=== PATIENT | female | born 1975 | race Caucasian/White ===

== ENCOUNTER 2022-06-23 08:58 | Emergency (ER) | payer OTHER, SELFPAY ==
--- NOTE | ~2022-06-23 | XR_ITS ---
EXAMINATION: XR ANKLE, LEFT. XR FOOT, LEFT. CLINICAL INFORMATION: Left foot and ankle pain COMPARISON: None. TECHNIQUE: 3 views of the left ankle. 3 views of the left foot. FINDINGS: The ankle mortise is preserved. No acute fracture or malalignment. No significant degenerative findings. XR/XR foot LT min 3V IMPRESSION: Normal left ankle and foot.
--- NOTE | ~2022-06-23 | XR_ITS ---
EXAMINATION: XR ANKLE, LEFT. XR FOOT, LEFT. CLINICAL INFORMATION: Left foot and ankle pain COMPARISON: None. TECHNIQUE: 3 views of the left ankle. 3 views of the left foot. FINDINGS: The ankle mortise is preserved. No acute fracture or malalignment. No significant degenerative findings. XR/XR ankle LT min 3V IMPRESSION: Normal left ankle and foot.
[2022-06-23 09:53] VITALS: BP 135/88; PULSE 88; RESP 18; TEMP 37; O2SAT 99; BMI 32.4
[2022-06-23 10:00] VITALS: BP 142/88; PULSE 82; RESP 16; TEMP 36.9; O2SAT 100
--- NOTE | 2022-06-23 10:48 | ED_ITS ---
HPI - General Adult General Chief complaint: Back Pain/Injury Stated complaint: R side back pain Time Seen by Provider: 06/23/22 09:56 Source: patient and RN notes reviewed Mode of arrival: ambulatory Limitations: no limitations History of Present Illness HPI narrative: This is a 46-year-old female who presents to the emergency department today with complaints of low back pain since last weekend. Patient reports that she has had no recent trauma, injury, or heavy lifting. Her job requires her to be on her feet for most of the day. She was seen by her primary care doctor 1 week ago and was given a course of steroids, muscle relaxers, and the pain cream which has provided her with relief. She reports the low back pain is left-sided and radiates into her left buttocks. She also reports that she has had pain on the top of her left foot and noticed some swelling several days ago. She admits that her left foot pain is worse than her back pain today. She denies any recent trauma or injury to her left foot in believes that her symptoms are related. Denies any urinary or bowel incontinence. Denies any urinary or bowel retention. Denies dysuria, hematuria, urinary frequency urgency. Denies any fevers, chills, abdominal pain, nausea, vomiting, or diarrhea. Denies any other complaints or concerns at this time. MD complaint: Back pain, left foot pain Onset (ago): week(s) Location: back, buttocks and lower extremity Severity: moderate Pain Consistency: constant Relieving factors: none Exacerbating factors: none Associated symptoms: denies other symptoms Treatments prior to arrival: none Related Data Previous Rx's Medication Instructions Recorded ibuprofen 600 mg tablet 600 mg PO Q6H PRN pain #45 tabs 06/23/22 Allergies Allergy/AdvReac Type Severity Reaction Status Date / Time Penicillins [PENICILLINS] Allergy Unknown RASH Verified 06/23/22 09:52 Review of Systems Review of Systems: Constitutional: No Weight loss, No Fever, No Chills ENT/Mouth: No Ear Pain, No Nasal Congestion, No Sinus Pain, No Hoarseness, No sore throat, No Rhinorrhea, No Swallowing Difficulty Cardiovascular: No Chest Pain, No SOB Respiratory: No Cough, No Sputum, No Wheezing Gastrointestinal: No Nausea, No Vomiting, No Diarrhea, No Constipation, No Abdominal pain Genitourinary: No Dysuria, No Urinary Frequency, No Hematuria, No Urinary Incontinence/retention, No Urgency, No Flank Pain Musculoskeletal: +foot pain, +back pain, No joint pain, No Myalgias, No Joint Swelling Skin: No Skin Lesions, No rash Neuro: No Weakness, No Numbness, No Paresthesias Yes all other systems are reviewed and are negative Constitutional: Constitutional: Reports as per [facility] Past Medical History Attestation statement: The following information was validated with the patient. Social History Social History Advance Directives: No Advance Directives Information Provided: No Physical Exam ED Vital Signs: Vital Signs - 24 hr 06/23/22 09:53 06/23/22 10:00 Temperature 98.6 F 98.4 F Pulse Rate 88 82 Respiratory Rate 18 16 Blood Pressure 135/88 142/88 H Pulse Oximetry 99 100 Oxygen Delivery Method Room Air Room Air BMI result Body Mass Index 32.4 Const General: cooperative, comfortable and no acute distress Orientation/consciousness: patient oriented x3 Limitations: no limitations HENMT Head: Yes normal to inspection, Yes normocephalic and Yes atraumatic Ears: hearing grossly normal bilaterally General nose exam: Normal external nose present Face and sinus: Yes normal facial exam Mouth: Normal oral and palatal mucosa present, oropharynx normal and moist mucous membranes Throat: Yes posterior oropharynx normal Eyes General: appearance normal, both eyes and all related structures Eyelids: Yes eyelids normal Conjunctivae: conjunctivae normal Sclerae: sclerae normal Pupils: Equal, round and reactive pupils present EOM: EOMs intact bilaterally Neck Neck: Yes normal visual inspection, Yes full ROM and Yes no lymphadenopathy Lymphatic: no lymphadenopathy noted Chest Chest palpation & inspection: normal inspection of the chest Resp Effort & Inspection: normal respiratory effort and able to speak in complete sentences Auscultation: clear to auscultation bilaterally, no crackles, no rales, no rhonchi and no wheezes Cardio Rate: regular rate Rhythm: regular rhythm Heart sounds: S1 normal heart sound present and S2 normal heart sound present GI Inspection: Yes normal to inspection Back/Spine/Pelvis Other: No midline spine tenderness. No lumbar paraspinous muscle tenderness. There is tenderness to palpation over the left sciatic notch, no overlying skin changes in this region. Negative straight leg raise. Skin General skin exam: no rashes or lesions noted Trauma: no lacerations or abrasions Wounds: no wounds Neuro General: patient oriented x3 and moves all extremities Cranial nerves: Yes Equal, round and reactive pupils present Extrem Other: Left foot with 2cm circular area of edema and ecchymosis overlying the 4th and 5th metatarsal, with tenderness to palpation in this region. No bony step off or deformity. No tenderness to palpation over the medial or lateral ankle. Ankle to dorsi and plantar flex, inversion and eversion range of motion is tact. General: Yes normal to inspection Right upper extremity: normal to inspection Left upper extremity: normal to inspection Right lower extremity: normal to inspection Left lower extremity: normal to inspection Medications Administered Discontinued Medications Generic Name Dose Route Start Last Admin Trade Name Freq PRN Reason Stop Dose Admin Ketorolac Tromethamine 30 mg 06/23/22 10:31 06/23/22 11:02 Ketorolac Tromethamine 30 Mg/Ml Vial IM 06/23/22 10:32 30 mg ONCE ONE Administration Medical Decision Making Medical Decision Making MDM Narrative: 46 year old female presenting to the emergency department for evaluation of left foot pain and left low back pain. On examination patient has area of ecchymosis over her midfoot with TTP. TTP over the left sciatic notch. Pt reporting more pain in left foot than back, is currently on prednisone and flexeril. No red flag symptoms. UA collected appears to be contaminated, pt has no urinary symptoms. Xray of foot and ankle unremarkable. VSS. Patient is ambulatory with steady gait. Pt medicated in department with Toradol 30mg IM. Pt d/c on ibuprofen, advised to f/u with PCP to further manage back pain. Pt understands and agrees with plan. Differential Diagnosis Differential Diagnoses: The differential diagnosis associated with the presentation includes Left foot contusion, sprain, strain, sciatica, low back pain, UTI Admission/Observation Consideration of admission/observation: Escalation of care including admission/observation considered Lab Data [facility] Lab Attestation statement: I reviewed the patient's lab results. Labs: Lab Results 06/23/22 Range/Units 11:04 Urine Color Yellow Urine Appearance Cloudy Urine pH 6.5 (5.0-9.0) Ur Specific [place] >= 1.030 H (1.005-1.025) Urine Protein 30 (1+) H (Neg-Trace) mg/dL Urine Glucose (UA) Negative (Negative) mg/dL Urine Ketones Trace (Negative) mg/dL Urine Blood Negative (Negative) Urine Nitrite Negative (Negative) Ur Leukocyte Esterase Small (1+) H (Negative) Urine RBC 0-2 (0-2) /HPF Urine WBC 0-5 (0-5) /HPF Ur Squamous Epith Cells >20 (0-2) /HPF Urine Bacteria 4+ (None Seen) Hyaline Casts 0-2 (0-2) /LPF Independent Interpretation I performed an independent interpretation of an: Plain X-Ray Interpretation: Left foot and ankle x-ray ordered and reviewed by me, no acute bony abnormalities seen. Radiology Impression Discussion of test interpretation with radiology: I have reviewed the radiologist's reading. Radiologist Impression: EXAMINATION: XR ANKLE, LEFT. XR FOOT, LEFT. CLINICAL INFORMATION: Left foot and ankle pain COMPARISON: None. TECHNIQUE: 3 views of the left ankle. 3 views of the left foot. FINDINGS: The ankle mortise is preserved. No acute fracture or malalignment. No significant degenerative findings. XR/XR foot LT min 3V IMPRESSION: Normal left ankle and foot. ? Dictated By: Jer Broussard MD Prescription Management I considered prescription management with: Pain Medication Discharge Plan Discharge Clinical Impression: Back pain, Acute pain of left foot Patient Disposition: Home, Self-Care Instructions: Acute Low Back Pain (ED), Arthralgia (ED) Additional Instructions: Your foot and ankle x-rays were unremarkable today. You likely strained some muscles and ligaments your foot. Please ice, elevate, and use Aman wrap for symptomatic relief. Take ibuprofen as directed as needed for pain. Please take with food as this will cause stomach upset. Please follow-up with your primary care physician as they likely will refer you to physical therapy for further management of your low back pain. If any new or worsening symptoms occur including but not limited to fevers, urinary incontinence, bowel incontinence, pain with urination, blood in your urine, weakness, tingling, please return for re-evaluation. Prescriptions: New ibuprofen 600 mg tablet 600 mg PO Q6H PRN (Reason: pain) Qty: 45 0RF Discharge Date/Time: 06/23/22 12:21
[2022-06-23] MEDS: Ketorolac Tromethamine 30 MG/ML VIAL IM (11:02)
[2022-06-23 11:13] LABS: Appearance Urine Cloudy; Color Urine Yellow; Glucose Urine UA Negative (Negative); Leukocyte Esterase Urine Small (1+) (Negative); Nitrite Urine Negative (Negative); PH 6.5 (5.0-9.0); Specific Gravity - Urine >= 1.030 (1.005-1.025); UMIC TRIGGER UACC YES; Urine Blood Negative (Negative); Urine Ketones Trace mg/dL (Negative); Urine Protein 30 (1+) mg/dL (Neg-Trace)
[2022-06-23 11:24] LABS: Bacteria Urine 4+ (None Seen); Hyaline Casts Urine 0-2 /LPF (0-2); RBC Urine 0-2 /HPF (0-2); Squamous Epithelial Cell Urine >20 /HPF (0-2); UACC Culture Trigger YES; WBC Urine 0-5 /HPF (0-5)
== END 2022-06-23 12:21 | disposition home or self-care (01) ==
PROVIDERS: Emergency Provider Emergency Medicine
DX: M54.50 Low back pain, unspecified (principal); M79.672 Pain in left foot; M25.572 Pain in left ankle and joints of left foot; Z79.899 Other long term (current) drug therapy
CPT/HCPCS: 73610; 73630; 81001; 87086; 96372; 99284; J1885